=== PATIENT | male | born 1995 | race Hispanic/Latino ===

== ENCOUNTER 2020-02-20 09:05 | Emergency (ER) | payer SELFPAY ==
[2020-02-20] MEDS ORDERED: METHYLPREDNISOLONE SOD SUCC 40MG/ML 1ML ONE (10:03)
[2020-02-20] MEDS ORDERED: IPRATROPIUM/ALBUTEROL SULFATE 3 ML SOLUTION IH ONE (10:08)
[2020-02-20] MEDS ORDERED: ALBUTEROL SULFATE 0.083% 2.5 MG/3 ML INH IH ONE (12:00)
== END 2020-02-20 10:41 | disposition home or self-care (01) ==
LOC: EDH 09:05
DX: J45.31 Mild persistent asthma with (acute) exacerbation (principal)
CPT/HCPCS: 96372; 99283; J2920